=== PATIENT | male | born 1955 | race Caucasian/White ===

== ENCOUNTER 2021-03-08 12:05 | Emergency (ER) | payer MEDICARE ==
[~2021-03-08 12:05] MED LIST: EPITOL200 MG PO; IBUPROFEN600 MG PO; PERCOCET 5-3251 EACH PO; ROPINIROLE HCL3 MG PO
[2021-03-08 13:06] LABS: HEMOGLOBIN 16.4 gm/dl (14.0-17.5); RED BLOOD COUNT 5.14 M/UL (4.20-5.50); WHITE BLOOD COUNT 4.1 K/UL (4.5-11.0)
[2021-03-08 13:34] LABS: BUN/CREATININE RATIO 13 (0-10)
[2021-03-08] MEDS ORDERED: CEPHALEXIN500 M1 PO (17:45)
[2021-03-08] MEDS ORDERED: BACTRIM 400-801 EACH PO (17:45)
== END 2021-03-08 18:11 | disposition home or self-care (01) ==
LOC: ER1 12:05
PROVIDERS: Physician Assistant
DX: I87.2 Venous insufficiency (chronic) (peripheral) (principal); L03.115 Cellulitis of right lower limb; L03.116 Cellulitis of left lower limb; E11.9 Type 2 diabetes mellitus without complications; I10 Essential (primary) hypertension
CPT/HCPCS: 80053; 85025; 96374; 99283

== ENCOUNTER → 2021-04-15 | Outpatient (CLI) | payer MEDICARE ==
[~2021-04-15] MED LIST changes: +BACTRIM 400-801 EACH PO; +CEPHALEXIN500 M1 PO
== END ==
LOC: HEART 5 13:00
DX: R60.0 Localized edema (principal); R94.39 Abnormal result of other cardiovascular function study; I51.7 Cardiomegaly; I07.1 Rheumatic tricuspid insufficiency
CPT/HCPCS: 93306

== ENCOUNTER → 2021-09-07 | Outpatient (CLI) | payer MEDICARE ==
[~2021-09-07] MED LIST changes: +BETAMETHASONE D50 G1 TOP; +BUMETANIDE1 MG PO; +BUSPIRONE HCL7.5 MG PO; +DOXYCYCLINE HY100 MG PO; +DRISDOL1250 MCG PO; +DULOXETINE HCL60 MG PO; +GABAPENTIN800 MG PO; +PERCOCET 10-321 EACH PO; -PERCOCET 5-3251 EACH PO; +ROPINIROLE HCL5 MG PO; +TIZANIDINE HCL4 MG PO
== END ==
LOC: KOH-I 09:37
DX: I87.2 Venous insufficiency (chronic) (peripheral) (principal); L97.909 Non-pressure chronic ulcer of unspecified part of unspecified lower leg with unspecified severity; I89.0 Lymphedema, not elsewhere classified; R60.0 Localized edema; M47.817 Spondylosis without myelopathy or radiculopathy, lumbosacral region
CPT/HCPCS: 72192

== ENCOUNTER → 2022-01-28 | Outpatient (CLI) | payer MEDICARE ==
[~2022-01-28] MED LIST changes: -BUMETANIDE1 MG PO; +BUMETANIDE2 MG PO; +COCONUT OIL TOP; +CYCLOBENZAPRINE10 MG PO; +GABAPENTIN600 MG PO; -GABAPENTIN800 MG PO; +TORSEMIDE20 MG PO
== END ==
LOC: ECHO 01-27 08:30 → US 08:19 → ECHO 09:15
DX: E11.9 Type 2 diabetes mellitus without complications (principal); R60.9 Edema, unspecified; M79.662 Pain in left lower leg; I50.9 Heart failure, unspecified; R10.9 Unspecified abdominal pain; R55 Syncope and collapse; R51.9 Headache, unspecified; R42 Dizziness and giddiness; K76.0 Fatty (change of) liver, not elsewhere classified; I65.23 Occlusion and stenosis of bilateral carotid arteries; I08.3 Combined rheumatic disorders of mitral, aortic and tricuspid valves; Z90.49 Acquired absence of other specified parts of digestive tract
CPT/HCPCS: ECHO; 76700; 93306; 93880